=== PATIENT | male | born 2000 | race Caucasian/White ===

== ENCOUNTER 2019-08-06 11:18 | Emergency (ER) | payer OTHER ==
[2019-08-06 11:23] VITALS: BP 127/73; PULSE 79; RESP 18; TEMP 98.1
[2019-08-06] MEDS ORDERED: PROPARACAINE 0.5% OPHTH DROPS 15 ML BTL LEFT EYE STA (11:45)
--- NOTE | 2019-08-06 11:46 | ED ---
Eye Problem HPI - General Chief complaint: Eye Problems Stated complaint: [facility]-metal shaving in eye Time Seen by Provider: 08/06/19 11:33 Source: patient, RN notes reviewed Mode of arrival: ambulatory Limitations: no limitations - History of Present Illness Initial comments: 18-year-old male presents emergency Department chief complaint of possible forei gn body to his left eye. Patient states is a ladder looking up using a self- tapping and states that the some metal shaving fell towards his eye. Patient states that he felt that it wasn't his eye flush it out and symptoms improved. He does wear contacts denies any blurred vision. Patient offers no other complaints at this time. Patient states his tetanus is up-to-date. - Related Data Home Medications Medication Instructions Recorded Confirmed No Known Home Medications 08/06/19 08/06/19 Allergies Allergy/AdvReac Type Severity Reaction Status Date / Time Penicillins Allergy Rash/Hives Verified 08/06/19 11:40 Review of Systems ROS Statement: Those systems with pertinent positive or pertinent negative responses have been documented in the HPI. ROS Other: All systems not noted in ROS Statement are negative. Past Medical History Past Medical History: No Reported History History of Any Multi-Drug Resistant Organisms: None Reported Past Surgical History: Adenoidectomy, Tonsillectomy Past Psychological History: No Psychological Hx Reported Smoking Status: Never smoker Past Alcohol Use History: None Reported Past Drug Use History: None Reported General Exam Limitations: no limitations General appearance: alert, in no apparent distress Head exam: Present: atraumatic, normocephalic, normal inspection Eye exam: Present: normal appearance, PERRL, EOMI. Absent: scleral icterus, conjunctival injection, periorbital swelling Pupils: Present: other (Fluorescein dye and Wood's lamp were used to evaluate the left eye there is uptake in the sclera) ENT exam: Present: normal exam, normal oropharynx, mucous membranes moist, TM's normal bilaterally, normal external ear exam Neck exam: Present: normal inspection, full ROM. Absent: tenderness, meningismus, lymphadenopathy Respiratory exam: Present: normal lung sounds bilaterally. Absent: respiratory distress, wheezes, rales, rhonchi, stridor Cardiovascular Exam: Present: regular rate, normal rhythm, normal heart sounds. Absent: systolic murmur, diastolic murmur, rubs, gallop, clicks Course Vital Signs 08/06/19 11:20 Temperature 98.1 F Pulse Rate 79 Respiratory 18 Rate Blood Pressure 127/73 O2 Sat by Pulse 98 Oximetry Medical Decision Making - Medical Decision Making 18-year-old male presented for left eye possible foreign body there is no foreign body evident. Patient does have a scleral abrasion we given Tobrex eyedrops patient will follow-up with ophthalmology return for any worsening symptoms. Patient's tetanus is up-to-date. Disposition Clinical Impression: Abrasion of sclera of left eye Disposition: HOME SELF-CARE Condition: Stable Instructions (If sedation given, give patient instructions): Eye Foreign Body (ED) Additional Instructions: Please return to the Emergency Department if symptoms worsen or any other concerns. Is patient prescribed a controlled substance at d/c from ED?: No Referrals: None,Stated [Primary Care Provider] - 1-2 days John Ramos MD [STAFF PHYSICIAN] - 1-2 days Time of Disposition: 12:08
[2019-08-06] MEDS ORDERED: TOBRAMYCIN 0.3% OPHTH DROPS 5 ML BTL LEFT EYE STA (12:05)
== END 2019-08-06 13:14 | disposition home or self-care (01) ==
LOC: EC 11:18
DX: S05.02XA Injury of conjunctiva and corneal abrasion without foreign body, left eye, initial encounter (principal); Z88.0 Allergy status to penicillin; X58.XXXA Exposure to other specified factors, initial encounter; Y92.69 Other specified industrial and construction area as the place of occurrence of the external cause; Y99.0 Civilian activity done for income or pay
CPT/HCPCS: 99283